=== PATIENT | female | born 2000 | race Two or more races ===

== ENCOUNTER 2020-10-31 12:43 | Inpatient (IN) | payer MEDICAID, SELFPAY ==
[2020-10-31] VITALS (112 sets, daily range): BP systolic 105–145; BP diastolic 57–100; PULSE 57–137; TEMP 36.2–36.4; O2SAT 99–100; BMI 35.8
[2020-10-31 14:10] LABS: Add Urine Microscopic? YES; Appearance Urine Clear (Clear); Bacteria Urine Trace /hpf; Bilirubin Urine Negative (Negative); Blood Urine 1+ (Negative); Color Urine Yellow (Yellow); Glucose Urine UA Negative (Negative); Ketones Urine Negative (Negative); Leukocyte Esterase Ur Negative LEU/UL (NEGATIVE); Mucus Urine Rare /lpf; Nitrate Urine Negative (Negative); Protein Urine Negative (Negative); RBC Urine 0-2 /hpf (0-2); Specific Grav Ur 1.018 (1.001-1.035); Squamous Epithelial Cell Urine Moderate /hpf (Few); Urobilinogen Urine Negative mg/dL (<2.0)
[2020-10-31 14:23] LABS: Amphetamine Screen Urine Negative (Negative); Barbiturate Screen Urine Negative (Negative); Benzodiazepines Screen Urine Negative (Negative); Cannabinoid Screen Urine Negative (Negative); Cocaine Screen Urine Negative (Negative); Methadone Screen Urine Negative (Negative); Opiate Screen Urine Negative (Negative); Phencyclidine Screen Urine Negative (Negative)
[2020-10-31 14:24] LABS: Basophils Percent Auto 0.3 % (0.2-1.2); Eosinophils Absolute Auto 0.3 K/mm3 (0-0.3); Eosinophils Percent Auto 2.9 % (0-4.4); Hematocrit 36.4 % (37.0-47.0); Hemoglobin 11.8 g/dL (12.0-15.0); Immature Granulocyte Absolute 0.05 K/mm3 (0.00-0.031); Immature Granulocyte Percent A 0.5 % (0-0.5); Lymphocytes Absolute Auto 2.42 K/mm3 (0.9-3.2); Lymphocytes Percent Auto 21.8 % (18.3-44.2); Mean Corpuscular HGB Conc 32.4 g/dl (32-36); Mean Corpuscular Hemoglobin 27.8 pg (26-34); Mean Corpuscular Volume 85.8 fl (80-100); Mean Platelet Volume 11.5 fl (7.4-10.4); Monocytes Absolute Auto 0.7 K/mm3 (0.1-0.6); Monocytes Percent Auto 6.6 % (2.6-8.5); Neutrophils Absolute Auto 7.6 K/mm3 (1.3-6.7); Neutrophils Percent Auto 67.9 % (45.5-73.1); Platelet Count Result 234 k/mm3 (150-375); Red Blood Count 4.24 M/mm3 (4.2-5.4); Red Cell Distribution Width 14.5 % (11.5-14.5); White Blood Count 11.1 K/mm3 (4.5-10.0)
[2020-10-31] MEDS: LACTATED RINGERS 1,000 ML 125 ML IV CONT (14:49)
[2020-10-31] MEDS: OXYTOCIN 30 UNITS/NS 500 ML 30 UNITS/500 ML BAG IV CONT (14:50)
--- NOTE | 2020-10-31 17:27 | WPDANESEPPF ---
Anes - Initial Pre Proc Eval Procedure: labor epidural Date/Time: 10/31/20 17:27 Surgeon: Giorgio Michael MD Pre Op Diagnosis: labor pain Pre Op Diagnosis: Leaking/Contratctions Patient Data Age: 20 Gender: F Height: 1.55 m Weight: 86 kg Last Vital Signs Temp 36.4 C L 10/31/20 15:00 Pulse 134 H 10/31/20 13:46 BP 131/74 10/31/20 13:46 Allergies Allergy/AdvReac Type Severity Reaction Status Date / Time No Known Allergies Allergy Verified 10/31/20 14:23 Home Medications Medication Instructions Recorded Confirmed Type PNV cmb#95-ferrous fumarate-FA 1 tablet PO DAILY 10/31/20 10/31/20 History [] Laboratory Tests 10/31/20 10/31/20 10/31/20 13:42 13:42 14:18 WBC 11.1 K/mm3 H K/mm3 (4.5-10.0) RBC 4.24 M/mm3 M/mm3 (4.2-5.4) Hgb 11.8 g/dL L g/dL (12.0-15.0) Hct 36.4 % L % (37.0-47.0) MCV 85.8 fl fl (80-100) MCH 27.8 pg pg (26-34) MCHC 32.4 g/dl g/dl (32-36) RDW 14.5 % % (11.5-14.5) Plt Count 234 k/mm3 k/mm3 (150-375) MPV 11.5 fl H fl (7.4-10.4) Immature Gran % (Auto) 0.5 % % (0-0.5) Neut % (Auto) 67.9 % % (45.5-73.1) Lymph % (Auto) 21.8 % % (18.3-44.2) [place] % (Auto) 6.6 % % (2.6-8.5) Eos % (Auto) 2.9 % % (0-4.4) Baso % (Auto) 0.3 % % (0.2-1.2) Lymph # (Auto) 2.42 K/mm3 K/mm3 (0.9-3.2) [place] # (Auto) 0.7 K/mm3 H K/mm3 (0.1-0.6) Eos # (Auto) 0.3 K/mm3 K/mm3 (0-0.3) Baso # (Auto) 0.0 K/mm3 K/mm3 (0.0-0.1) Abs Immat Gran (auto) 0.05 K/mm3 H K/mm3 (0.00-0.031) Absolute Neuts (auto) 7.6 K/mm3 H K/mm3 (1.3-6.7) Absolute Nucleated RBC 0.0 K/mm3 K/mm3 (0.0-0.012) Nucleated RBC % 0.0 % % (0.0-0.2) Urine Color Yellow (Yellow) Urine Appearance Clear (Clear) Urine pH 6.0 (5.0-9.0) Ur Specific [place] 1.018 (1.001-1.035) Urine Protein Negative mg/dL mg/dL (Negative) Urine Glucose (UA) Negative mg/dL mg/dL (Negative) Urine Ketones Negative mg/dL mg/dL (Negative) Ur Blood (Man) 1+ H (Negative) Urine Nitrate Negative (Negative) Urine Bilirubin Negative (Negative) Urine Urobilinogen Negative mg/dL mg/dL (<2.0) Ur Leukocyte Esterase Negative ISAI/UL ISAI/UL (NEGATIVE) Urine RBC 0-2 /hpf /hpf (0-2) Urine WBC 4-6 /hpf H /hpf (0-3) Ur Squamous Epith Cells Moderate /hpf H /hpf (Few) Urine Bacteria Trace /hpf /hpf Urine Mucus Rare /lpf /lpf Urine Opiates Screen Negative (Negative) Urine Methadone Screen Negative (Negative) Ur Barbiturates Screen Negative (Negative) Ur Phencyclidine Scrn Negative (Negative) Ur Amphetamine Screen Negative (Negative) U Benzodiazepines Scrn Negative (Negative) Urine Cocaine Screen Negative (Negative) U Cannabinoids Screen Negative (Negative) RPR Blood Type Antibody Screen 10/31/20 10/31/20 14:18 14:18 WBC RBC Hgb Hct MCV MCH MCHC RDW Plt Count MPV Immature Gran % (Auto) Neut % (Auto) Lymph % (Auto) [place] % (Auto) Eos % (Auto) Baso % (Auto) Lymph # (Auto) [place] # (Auto) Eos # (Auto) Baso # (Auto) Abs Immat Gran (auto) Absolute Neuts (auto) Absolute Nucleated RBC Nucleated RBC % Urine Color Urine Appearance Urine pH Ur Specific [place] Urine Protein Urine Glucose (UA) Urine K
[2020-10-31] MEDS: fentaNYL CITRATE INJ (*CRX) 100 MCG/2 ML VIAL 50 MCG IV PUSH (17:36)
--- NOTE | 2020-10-31 18:52 | P.HP_ITS ---
Obstetrics - Admit Note Admission Note: record reviewed. Additions to the history and/or subsequent changes in the physical findings follow. 20 y/o G1 at 39 4/7 weeks here with gush of fluid at 0900. care in [place]. Rubella nonimmune. Chlamydia treated. Opos / RNI / RPR Neg / HepBSAg Neg / HIV Neg. Speaks [place]. Sister in law here fluently translating. Comfortable with epidural. AVSS NST reactive TOCO: contractions every 2-4 min ABD soft, nontender, gravid, vertex EXT nontender Cervix /-1 A: IUP at term with SROM. P: Augment labor with OT. Anticipate .
[2020-11-01] VITALS (105 sets, daily range): BP systolic 69–170; BP diastolic 49–112; PULSE 72–135; RESP 16–18; TEMP 36.6–37.2; O2SAT 16–100
--- NOTE | 2020-11-01 01:18 | PM.OBPNLAB ---
Pain Control Date/time seen: 11/01/20 01:18 Comments: Comfortable with epidural. Pelvic Exam Dilation (cm): 9 Effacement (%): 100 station: +1 Contractions Contraction frequency: 3 Contraction pattern: Regular Status Comments: Reactive Assessment and Plan Plan: continuous present management
--- NOTE | 2020-11-01 04:50 | PM.OBPRVD ---
OB - Delivery Note Procedure Delivery date: 11/01/20 Procedure: Induction method: none Delivery augmentation: pitocin Delivery monitor: external FHT, external uterine and internal uterine Route of delivery: Laceration Description: Perineal - 2nd Degree Delivery repair: vicryl (3-0) Specimen: Yes (cord blood) Quantitative Blood Loss (ml): 360 Anesthesia type: Epidural Disposition: PACU Complications: None Narrative: 20 y/o G1 at 39 5/7 weeks gestation who presented to the hospital with gush of fluid. SROM diagnosed. Oxytocin was administered intravenously for labor augmentation. She received an epidural for pain control. Her labor progressed and her cervix dilated completely. She pushed with good effort and delivered the infant's head to the perineum, followed by the body. The nose and mouth were bulb suctioned. After a delay, the cord was clamped and cut. The infant was handed off the field. Cord blood was collected. The placenta delivered spontaneously and was grossly normal in appearance. The usual 3 vessel cord was noted. A second degree midline perineal laceration was sustained. This was reapproximated using 3 0 Vicryl in the usual layered fashion. Excellent hemostasis resulted as did excellent reapproximation of the normal anatomy. Needle and instrument counts were correct. The patient was taken to recovery room in stable condition. The infant went to the nursery in stable condition. I was present and scrubbed for the entire delivery. Baby Date of : 11/01/20 Time of : 04:26 Weeks of gestation at delivery: 39 gender: Male Weight (pounds): 7 Weight (ounces): 14 presentation: vertex position: Right Occiput Anterior Placenta delivery description: Spontaneous and Normal Configuration cord vessel description: 3 Vessels and Delayed Cord Clamping score one minute: 8 score five minutes: 9
--- NOTE | 2020-11-01 04:53 | PM.OBDSVD ---
DS: Admitting Diagnosis Admitting Diagnosis IUP at 39 5/7 weeks SROM DS: Discharge Diagnosis Discharge Diagnosis (1) (normal spontaneous vaginal delivery): Code(s): O80 - Encounter for full-term uncomplicated delivery Status: Acute OB - DS: Summary OB Procedures : None OB Procedures Intrapartum: Spontaneous Vag Delivery OB Procedures: : RHo (D) lg DS: Data Data Completed and Pending Labs on day of discharge: Labs from last 24 hours 10/31/20 10/31/20 10/31/20 14:18 14:18 14:18 WBC 11.1 H RBC 4.24 Hgb 11.8 L Hct 36.4 L MCV 85.8 MCH 27.8 MCHC 32.4 RDW 14.5 Plt Count 234 MPV 11.5 H Immature Gran % (Auto) 0.5 Neut % (Auto) 67.9 Lymph % (Auto) 21.8 [place] % (Auto) 6.6 Eos % (Auto) 2.9 Baso % (Auto) 0.3 Lymph # (Auto) 2.42 [place] # (Auto) 0.7 H Eos # (Auto) 0.3 Baso # (Auto) 0.0 Abs Immat Gran (auto) 0.05 H Absolute Neuts (auto) 7.6 H Absolute Nucleated RBC 0.0 Nucleated RBC % 0.0 Urine Color Urine Appearance Urine pH Ur Specific [place] Urine Protein Urine Glucose (UA) Urine Ketones Ur Blood (Man) Urine Nitrate Urine Bilirubin Urine Urobilinogen Ur Leukocyte Esterase Urine RBC Urine WBC Ur Squamous Epith Cells Urine Bacteria Urine Mucus Urine Opiates Screen Urine Methadone Screen Ur Barbiturates Screen Ur Phencyclidine Scrn Ur Amphetamine Screen U Benzodiazepines Scrn Urine Cocaine Screen U Cannabinoids Screen RPR Pending Blood Type O Positive Antibody Screen Negative 10/31/20 10/31/20 13:42 13:42 WBC RBC Hgb Hct MCV MCH MCHC RDW Plt Count MPV Immature Gran % (Auto) Neut % (Auto) Lymph % (Auto) [place] % (Auto) Eos % (Auto) Baso % (Auto) Lymph # (Auto) [place] # (Auto) Eos # (Auto) Baso # (Auto) Abs Immat Gran (auto) Absolute Neuts (auto) Absolute Nucleated RBC Nucleated RBC % Urine Color Yellow Urine Appearance Clear Urine pH 6.0 Ur Specific [place] 1.018 Urine Protein Negative Urine Glucose (UA) Negative Urine Ketones Negative Ur Blood (Man) 1+ H Urine Nitrate Negative Urine Bilirubin Negative Urine Urobilinogen Negative Ur Leukocyte Esterase Negative Urine RBC 0-2 Urine WBC 4-6 H Ur Squamous Epith Cells Moderate H Urine Bacteria Trace Urine Mucus Rare Urine Opiates Screen Negative Urine Methadone Screen Negative Ur Barbiturates Screen Negative Ur Phencyclidine Scrn Negative Ur Amphetamine Screen Negative U Benzodiazepines Scrn Negative Urine Cocaine Screen Negative U Cannabinoids Screen Negative RPR Blood Type Antibody Screen Discharge Plan Discharge Attending physician on discharge: Giorgio Michael Discharging Clinician: Giorgio Michael Patient Disposition: Home, Self-Care Activity: pelvic rest Diet: regular Discharge Instructions: Education: Mom and Baby Guide Given to: Mother Follow-Up: Call your delivering provider's office for an appointment to be seen in: as directed by physician Mom and baby should come to the [facility] for the follow-up appointment. Appointment Date/Time: November 04, 2020 at 11:00 am What to expect at your follow-up visit: Blood Pressure Check Physical Assessment Call [phone] if you are unable to keep your appointment time. BREAST CARE: * Wear a snug supportive bra. * For engorgement discomfort: Bottle Feeding: * May apply ice packs EPISIOTOMY/PERINEAL CARE: * Until bleeding stops, use your sukhdeep bottle after urinating * Change your pad frequently throughout the day * You may take sitz baths several times a day (fill your bathtub with warm water and soak for 20 minutes.) Do NOT bathe in the water * No tub baths until seen by your physician - You may shower A
[2020-11-01] MEDS: OXYTOCIN 30 UNITS/NS 500 ML 30 UNITS/500 ML BAG 125 UNITS IV CONT (05:01)
--- NOTE | 2020-11-01 06:57 | PC.NURSE ---
0647- called,informed bp's are elevated running 150's-170's/80's-100's. Pt denies headache or visual disturbances. Orders received to draw PIH labs and watch bp's for now.
[2020-11-01 07:25] LABS: Basophils Absolute Auto 0.1 K/mm3 (0.0-0.1); Basophils Percent Auto 0.2 % (0.2-1.2); Hematocrit 34.1 % (37.0-47.0); Immature Granulocyte Absolute 0.18 K/mm3 (0.00-0.031); Immature Granulocyte Percent A 0.8 % (0-0.5); Lymphocytes Absolute Auto 0.86 K/mm3 (0.9-3.2); Lymphocytes Percent Auto 3.7 % (18.3-44.2); Mean Corpuscular HGB Conc 32.3 g/dl (32-36); Mean Corpuscular Hemoglobin 27.9 pg (26-34); Mean Corpuscular Volume 86.5 fl (80-100); Mean Platelet Volume 11.8 fl (7.4-10.4); Monocytes Absolute Auto 1.1 K/mm3 (0.1-0.6); Monocytes Percent Auto 4.5 % (2.6-8.5); Neutrophils Absolute Auto 21.4 K/mm3 (1.3-6.7); Neutrophils Percent Auto 90.8 % (45.5-73.1); Platelet Count Result 206 k/mm3 (150-375); Red Blood Count 3.94 M/mm3 (4.2-5.4); Red Cell Distribution Width 14.9 % (11.5-14.5); White Blood Count 23.6 K/mm3 (4.5-10.0)
[2020-11-01 07:34] LABS: Alanine Aminotransferase 15 U/L (4-35); Albumin Level 2.8 g/dL (3.5-5.1); Alkaline Phosphatase 226 U/L (38-126); Anion Gap 7 mmol/L (8-16); Aspartate Amino Transferase 34 U/L (14-36); Bilirubin,Total 0.3 mg/dL (0.2-1.3); Blood Urea Nitrogen 10 mg/dL (7-17); Calcium 7.6 mg/dL (8.4-10.2); Carbon Dioxide 19 mmol/L (22-30); Chloride 108 mmol/L (98-107); Estimated CRCL calculation 110 ml/min; Estimated Glomerular Filt Rate > 60; Glucose 82 mg/dL (65-110); Potassium 3.7 mmol/L (3.4-5.0); Sodium 134 mmol/L (137-145); Uric Acid 6.6 mg/dL (2.5-7.5)
--- NOTE | 2020-11-01 10:30 | PC.NURSE ---
Consult with pt., thru her sister in law as livestock dealer. Reviewed assist is available for each feeding. Mother states she breastfed first feeding and has bottle fed and will now continue to bottle feed. Mother will call out for assist if she wishes to put to breast.
[2020-11-02 04:00] VITALS: BP 126/79; PULSE 71; RESP 16; TEMP 36.5; O2SAT 98
[2020-11-02] MEDS: TETANUS,DIPHTHERIA,AC PERTUSSIS ADULT (0.5 ML) BOOSTRIX IM (04:10)
[2020-11-02 05:22] LABS: Hemoglobin 10.4 g/dL (12.0-15.0)
[2020-11-02 06:50] LABS: Rapid Plasma Reagin Non-Reactive (NonReactive)
[2020-11-02 07:55] VITALS: BP 119/79; PULSE 65; RESP 16; TEMP 37.2; O2SAT 100
--- NOTE | 2020-11-02 09:31 | WPDANLDPN2 ---
Anes-Prog Note L&D Date/Time: 11/02/20 09:31 Comfortable throughout: labor and delivery Neuraxial method: epidural Epidural/Spinal procedure site: clean & non-tender Neuro status: Neuro function grossly intact. Cardiovascular status: normal Respiratory status: normal Airway patency: baseline Mental status: baseline Post-Op hydration status: normal Vital Signs: Last Vital Signs Temp 37.2 C 11/02/20 07:55 Pulse 65 11/02/20 07:55 Resp 16 11/02/20 07:55 BP 119/79 11/02/20 07:55 Pulse Ox 100 11/02/20 07:55 Pain score (VAS): 0/10 Post-procedural complaints: none Patient feedback: Patient satisfied with anesthetic care.
[2020-11-02] MEDS: IBUPROFEN 600 MG TABLET PO (10:11)
[2020-11-02] MEDS: DOCUSATE SODIUM 100 MG CAPSULE PO (10:12)
[2020-11-02] MEDS: MEASLES,MUMPS,RUBELLA VACCINE 0.5 ML VIAL SUB-Q (10:13)
--- NOTE | 2020-11-02 11:13 | PC.NURSE ---
Patient and her sister in law viewed the discharge video Mother & Baby Care, The First Two Weeks , in [place]. Patient was given the opportunity and encouraged to ask questions. Patient verbalized understanding of information shared and has been given the mother/baby guide for home reference.
--- NOTE | 2020-11-02 14:03 | PM.OBPNVD ---
OB - PN: Subj Subjective Date/time seen: 11/02/20 14:03 Narrative: Pain OK. Would like to go home. OB - PN: Obj Data Labs CBC & Chem 7: 11/02/20 04:09 11/01/20 07:01 Labs: Laboratory Results - last 24 hr 10/31/20 11/02/20 14:18 04:09 Hgb 10.4 L Hct 33.0 L RPR Non-reactive OB - PN A/P Plan Comments: A: PPD#1, doing well. P: Home to f/u 6 weeks. Exam Psych: Other: AVSS ABD soft, nontender, fundus firm EXT nontender
[2020-11-02] MEDS: medroxyPROGESTERone ACETATE IM 150 MG/ML SYR IM (15:57)
--- NOTE | 2020-11-02 19:29 | PC.NURSE ---
1600 Pt and her [id number] have the discharge papers and [id number] reviewed them with pt. Pt and her sister in law signed the discharge papers for mother and baby.
[2020-11-04 12:12] VITALS: BP 123/80; PULSE 80; RESP 20; TEMP 37.2; O2SAT 100
== END 2020-11-02 16:31 | disposition home or self-care (01) | DRG 560 ==
LOC: ANHLDR 11-01 04:54 → ANHOB2 11-01 07:48
PROVIDERS: Admitting Provider Obstetrics & Gynecology; Visit Provider Obstetrics & Gynecology
DX: O76 Abnormality in fetal heart rate and rhythm complicating labor and delivery (principal); O70.1 Second degree perineal laceration during delivery; Z3A.39 39 weeks gestation of pregnancy; Z37.0 Single live birth
CPT/HCPCS: 36415; 80053; 80307; 81001; 84112; 84550; 85014; 85018; 85025; 86592; 86850; 86900; 86901; 87086; 90710; 90715; A9270; J1050; J2590; J2795; J3010; J7120